=== PATIENT | male | born 1995 | race Caucasian/White ===

== ENCOUNTER 2019-12-07 10:34 | Emergency (ER) | payer OTHER ==
--- NOTE | 2019-12-07 11:51 | CR ---
Right calcaneus: 2 views of the right calcaneus were obtained. Axial view is somewhat unconventional due to positioning. Small lucent line is identified off the plantar aspect of the posterior calcaneus. Uncertain if this is artifact or due to minimal nondisplaced fracture. No additional bony abnormality is appreciated. Several sclerotic bone islands are noted within the calcaneus. Impression: 1. Lucent line as noted above. Difficult to exclude nondisplaced fracture. To rule out this possibility, calcaneal CT would be needed. Diagnostic code #3 This report was dictated in [place] Standard Time
--- NOTE | 2019-12-07 12:00 | EDM.PDOC ---
ED HPI GENERAL MEDICAL PROBLEM - General Chief Complaint: Lower Extremity Injury/Pain Stated Complaint: INJURED R HEEL AT HOME Time Seen by Provider: 12/07/19 10:46 Source of Information: Reports: Patient History Limitations: Reports: No Limitations - History of Present Illness INITIAL COMMENTS - FREE TEXT/NARRATIVE: HISTORY AND PHYSICAL: History of present illness: Patient is a 24-year-old male who presents to the emergency room today with complaints of right heel pain. He states last evening he kicked a door and since that time has had increased pain with weightbearing and palpation. He denies any previous injury or trauma of the affected extremity. He denies any numbness, tingling or saddle paresthesia. Offers no systemic complaints. Review of systems: As per history of present illness and below otherwise all systems reviewed and negative. Past medical history: As per history of present illness and as reviewed below otherwise noncontributory. Surgical history: As per history of present illness and as reviewed below otherwise noncontributory. Social history: See social history for further information Family history: As per history of present illness and as reviewed below otherwise noncontributory. Physical exam: General: Developed and well-nourished 24-year-old male. Alert and oriented. Nontoxic-appearing and in no acute distress. HEENT: Atraumatic, normocephalic, pupils equal and reactive bilaterally, negative for conjunctival pallor or scleral icterus, mucous membranes moist, trachea midline. No drooling or trismus noted. No meningeal signs. No hot potato voice noted. Lungs: Clear to auscultation, breath sounds equal bilaterally, chest nontender. Heart: S1S2, regular rate and rhythm without overt murmur Abdomen: Soft, nondistended, nontender. Skin: Mild soft tissue swelling and bruising on the right medial heel. Otherwise skin is intact, warm, dry. No lesions or rashes noted. Extremities: Ambulatory, pain with palpation to the right medial and solar surface of the calcaneus, moves all extremities per self without difficulty or deficits, negative for cords or calf pain. Cap refill less than 3 seconds. Strong pedal pulses. Neurovascular unremarkable. Neuro: Awake, alert, oriented. Cranial nerves II through XII unremarkable. Cerebellum unremarkable. Motor and sensory unremarkable throughout. Exam nonfocal. Notes: X-ray shows small lucent line identified off the plantar aspect of the posterior calcaneus. Radiology is unable to exclude a nondisplaced fracture. Patient does have pain at this site with soft tissue swelling and bruising. This information was shared with the patient. Will treat as a calcaneus fracture. We will put him in a cam walker boot and provide crutches so he can be non-weightbearing until he follows up with podiatry. Supportive care measures were reviewed and discussed. Voices understanding and is agreeable to plan of care. Denies any further questions or concerns at this time. Diagnostics: Calcaneal x-ray Therapeutics: CAM walker boot and crutches Prescription: Tramadol Impression: R/o calcaneus fracture, right Plan: 1. Rest, ice, elevate the affected extremity. Please wear the CAM walker boot and use crutches until you have been cleared by Podiatry. 2. Tylenol and/or Ibuprofen as needed for pain management. Tramadol for moderate to severe pain. This medication may cause drowsiness so do not take it while driving or needing to be functioning outside of the house. 3. Follow up with the Podiatry as we discussed. Return to the ED as needed and as discussed. Definitive disposition and diagnosis as appropriate pending reevaluation and review of above. right heel Pain Score (Numeric/FACES): 2 - Related Data Allergies Allergy/AdvReac Type Severity Reaction Status Date / Time No Known Allergies Allergy Verified 12/07/19 10:47 Home Meds: Home Meds . [No Known Home Meds] 12/07/19 [History] Past Medical History - Past Health History Medical/Surgical History: Denies Medical/Surgical History Social & Family History - Family History Family Medical History: Noncontributory - Tobacco Use Smoking Status *Q: Current Every Day Smoker Years of Tobacco use: 10 Packs/Tins Daily: 0.5 - Recreational Drug Use Recreational Drug Use: No Review of Systems - Review of Systems Review Of Systems: Comprehensive ROS is negative, except as noted in HPI. ED EXAM, GENERAL - Physical Exam Exam: See Below (See dictation) Course - Vital Signs Last Recorded V/S: Last Vital Signs Temp 97.7 F 12/07/19 10:45 Pulse 82 12/07/19 10:45 Resp 16 12/07/19 10:45 BP 124/85 12/07/19 10:45 Pulse Ox 99 12/07/19 10:45 - Orders/Labs/Meds Orders: Active Orders 24 hr Category Date Time Status DME for Discharge [COMM] Stat Oth 12/07/19 11:52 Ordered Departure - Departure Time of Disposition: 12:00 Disposition: Home, Self-Care 01 Clinical Impression: Calcaneal fracture Qualifiers: Encounter type: initial encounter Calcaneus location: unspecified portion of calcaneus Fracture type: closed Fracture alignment: nondisplaced Laterality: right Qualified Code(s): S92.001A - Unspecified fracture of right calcaneus, initial encounter for closed fracture - Discharge Information Referrals: PCP,None [Primary Care Provider] - Additional Instructions: The following information is given to patients seen in the emergency department who are being discharged to home. This information is to outline your options for follow-up care. We provide all patients seen in our emergency department with a follow-up referral. The need for follow-up, as well as the timing and circumstances, are variable depending upon the specifics of your emergency department visit. If you don't have a primary care physician on staff, we will provide you with a referral. We always advise you to contact your personal physician following an emergency department visit to inform them of the circumstance of the visit and for follow-up with them and/or the need for any referrals to a consulting specialist. The emergency department will also refer you to a specialist when appropriate. This referral assures that you have the opportunity for follow-up care with a specialist. All of these measure are taken in an effort to provide you with optimal care, which includes your follow-up. Under all circumstances we always encourage you to contact your private physician who remains a resource for coordinating your care. When calling for follow-up care, please make the office aware that this follow-up is from your recent emergency room visit. If for any reason you are refused follow-up, please contact the [facility] Emergency Department at and asked to speak to the emergency department charge nurse. [facility] [address] [place] [id number] [address] 1. Rest, ice, elevate the affected extremity. Please wear the CAM walker boot and use crutches until you have been cleared by Podiatry. 2. Tylenol and/or Ibuprofen as needed for pain management. Tramadol for moderate to severe pain. This medication may cause drowsiness so do not take it while driving or needing to be functioning outside of the house. 3. Follow up with the Podiatry as we discussed. Return to the ED as needed and as discussed. Sepsis Event Note - Evaluation Sepsis Screening Result: No Definite Risk - Focused Exam Vital Signs: Vital Signs Temp Pulse Resp BP Pulse Ox 12/07/19 10:45 97.7 F 82 16 124/85 99 Date Exam was Performed: 12/07/19 Time Exam was Performed: 11:54 - My Orders Last 24 Hours: My Active Orders 12/07/19 11:52 DME for Discharge [COMM] Stat - Assessment/Plan Last 24 Hours: My Active Orders 12/07/19 11:52 DME for Discharge [COMM] Stat
== END 2019-12-07 12:21 | disposition home or self-care (01) ==
LOC: MW.ED 10:34
DX: S92.001A Unspecified fracture of right calcaneus, initial encounter for closed fracture (principal); F17.210 Nicotine dependence, cigarettes, uncomplicated; W22.8XXA Striking against or struck by other objects, initial encounter
CPT/HCPCS: 73650-26-RT; 73650-RT; 99282; 99283-25